=== PATIENT | female | born 1955 | race Caucasian/White ===

== ENCOUNTER 2018-11-09 12:50 | Emergency (ER) | payer OTHER ==
[2018-11-09] MEDS ORDERED: PSEUDOEPHEDRINE HCL 30 MG TABLET PO ONE (13:31)
[2018-11-09] MEDS ORDERED: GUAIFENESIN 600 MG TABLET.SA PO ONE (13:31)
[2018-11-09] MEDS ORDERED: IBUPROFEN 600 MG TABLET PO ONE (13:31)
[2018-11-09] MEDS ORDERED: LORATADINE 10 MG TABLET PO ONE (13:31)
--- NOTE | 2018-11-09 13:35 | ER Document Report ---
ED ENT - General Chief Complaint: Sore Throat Stated Complaint: SORE THROAT Time Seen by Provider: 11/09/18 13:14 Mode of Arrival: Ambulatory Information source: Patient Notes: 63-year-old female presents to ED for complaint of cough cold congestion sore throat times a week. She states she also has bilateral ear pain is worse on the right. Patient is alert oriented respirations regular and unlabored speaking in full sentences no acute distress. TRAVEL OUTSIDE OF THE [place] IN LAST 30 DAYS: No - HPI Patient complains to provider of: Ear problem, Nose problem, Throat problem, Other Onset: Last week - Cough Onset/Duration: Gradual Quality of pain: Achy, Sharp Severity: Moderate Pain Level: 4 Context: Recent Illness Location of pain: Ears, Nose, Sinus, Throat Associated symptoms: Chills, Ear pain, Runny nose, Sinus pain, Sinus drainage, Sore throat. denies: Fever Similar symptoms previously: Yes Recently seen / treated by doctor: No - Related Data Allergies/Adverse Reactions: Penicillins Allergy (Verified 09/13/14 12:55) Anaphylaxis Past Medical History - General Information source: Patient - Social History Smoking Status: Never Smoker Cigarette use (# per day): No Chew tobacco use (# tins/day): No Smoking Education Provided: No Frequency of alcohol use: None Drug Abuse: None Occupation: Stocking Lives with: Family Family History: Reviewed & Not Pertinent Patient has suicidal ideation: No - Past Medical History Cardiac Medical History: Reports: Hx Hypertension Pulmonary Medical History: Reports: None EENT Medical History: Reports: None Neurological Medical History: Reports: None Endocrine Medical History: Reports: Hx Diabetes Mellitus Type 2 Renal/ Medical History: Reports: None Malignancy Medical History: Reports: None GI Medical History: Reports: None Musculoskeletal Medical History: Reports None Skin Medical History: Reports Hx Cellulitis Psychiatric Medical History: Reports: None Traumatic Medical History: Reports: None Infectious Medical History: Reports: None Past Surgical History: Reports: Hx Genitourinary Surgery - bladder tack, Hx Oral Surgery - Immunizations Hx Diphtheria, Pertussis, Tetanus Vaccination: Yes Physical Exam - Vital signs Vitals: Temp Pulse Resp BP Pulse Ox 98.5 F 82 16 121/62 99 11/09/18 13:01 11/09/18 13:01 11/09/18 13:01 11/09/18 13:01 11/09/18 13:01 Interpretation: Normal - General General appearance: Appears well, Alert - HEENT Head: Normocephalic, Atraumatic Eyes: Normal Pupils: PERRL Ears: Normal External canal: Normal Tympanic membrane: Normal Sinus: Normal Nasal: Swelling, Clear rhinorrhea Mouth/Lips: Normal Mucous membranes: Normal Pharynx: Post nasal drainage. No: Erythema, Exudate, Tonsillar hypertrophy Neck: Normal - Respiratory Respiratory status: No respiratory distress Chest status: Nontender Breath sounds: Nonproductive cough Chest palpation: Normal - Cardiovascular Rhythm: Regular Heart sounds: Normal auscultation Murmur: No - Abdominal Inspection: Normal Distension: No distension Bowel sounds: Normal Tenderness: Nontender Organomegaly: No organomegaly - Back Back: Normal, Nontender - Extremities General upper extremity: Normal inspection, Nontender, Normal color, Normal ROM, Normal temperature General lower extremity: Normal inspection, Nontender, Normal color, Normal ROM, Normal temperature, Normal weight bearing. No: Ledy's sign - Neurological Neuro grossly intact: Yes Cognition: Normal Orientation: AAOx4 Elyse Coma Scale Eye Opening: Spontaneous [place] Coma Scale Verbal: Oriented Elyse Coma Scale Motor: Obeys Commands Elyse Coma Scale Total: 15 Speech: Normal Motor strength normal: LUE, RUE, LLE, RLE Sensory: Normal - Psychological Associated symptoms: Normal affect, Normal mood - Skin Skin Temperature: Warm Skin Moisture: Dry Skin Color: Normal Course - Re-evaluation Re-evalutation: 11/09/18 20:43 Assessment consistent with an upper respiratory infection with sore throat. Lungs were clear respirations regular and unlabored strep test was negative. Patient was instructed that if the throat culture comes back positive she will have antibiotics called into her pharmacy. After performing a Medical Screening Examination, I estimate there is LOW risk for ACUTE CORONARY SYNDROME, RESPIRATORY FAILURE, SEPSIS OR MENINGITIS, thus I consider the discharge disposition reasonable. I have reevaluated this patient multiple times and no significant life threatening changes are noted. The patient and I have discussed the diagnosis and risks, and we agree with discharging home with close follow- up. We also discussed returning to the Emergency Department immediately if new or worsening symptoms occur. We have discussed the symptoms which are most concerning (e.g., changing or worsening pain, trouble swallowing or breathing, neck stiffness, fever) that necessitate immediate return. - Vital Signs Vital signs: Temp Pulse Resp BP Pulse Ox 98.3 F 85 16 108/63 99 11/09/18 15:20 11/09/18 15:20 11/09/18 15:20 11/09/18 15:20 11/09/18 15:20 Discharge - Discharge Clinical Impression: Viral sore throat Upper respiratory infection Qualifiers: URI type: unspecified URI Qualified Code(s): J06.9 - Acute upper respiratory infection, unspecified Disposition: HOME, SELF-CARE Additional Instructions: UPPER RESPIRATORY ILLNESS: You have a viral infection of the respiratory passages -- a "cold." This common infection causes nasal congestion, drainage, and often sore throat and cough. It is highly contagious. The disease usually lasts about 10 to 14 days. There is no "cure" for the viral infection -- it must run its course. If there is a complication, such as bacterial infection in the nose, sinuses, middle ear, or bronchial tubes, antibiotics may be required. The antibiotics won't affect the virus. Drink plenty of fluids. A humidifier may help. An expectorant medication or decongestant may make you more comfortable. Use acetaminophen or ibuprofen for fever or aches. See the doctor if fever persists over two days, if there is any significant worsening of your symptoms, or if you simply fail to improve as expected. COUGH-SUPPRESSANT & EXPECTORANT MEDICATION: You are to use a cough medication as needed for relief of symptoms. This medicine is a combination of an expectorant (to make the mucous thinner and more easily "coughed up") and a cough suppressant (to reduce the frequency of coughing). The cough-suppressant medicine is related to narcotics. You may experience mild nausea and sleepiness. Some patients who are very sensitive to narcotics may have stomach pain from this medicine. Taking the medicine with food reduces these side effects. Do not drive or work with machinery until you know how this medicine affects you. The expectorant should have no side effects. Iodine-containing expectorants (such as organidin) should not be taken by persons with active thyroid disease unless approved by your doctor. Call the doctor if you develop shortness of breath, hives, rash, itching, lightheadedness, or severe nausea and vomiting. USE OF ACETAMINOPHEN (Tylenol): Acetaminophen may be taken for pain relief or fever control. It's much safer than aspirin, offering a wider range of "safe" dosages. It is safe during . Some brand names are Tylenol, Panadol, Datril, Anacin 3, Tempra, and Liquiprin. Acetaminophen can be repeated every four hours. The following are maximum recommended dosages: >89 pounds or adults 650 mg to 900 mg Acetaminophen can be repeated every four hours. Maximum dose not to exceed 4000 mg a day. You were treated with Claritin 10 mg, Sudafed 30 mg, and Mucinex for your cough cold and congestion. Your strep test was negative. Your blood pressure was normal today and you had not told me you had a history of high blood pressure. There is a history of blood pressure in the chart if you do have high blood pr essure you are better to take Coricidin HB for your cough and cold symptoms if you do not have a history of high blood pressure then you can take the medication I gave you. Also Flonase would help with your nasal congestion. Chloraseptic spray would help with the sore throat and salt and soda solution gargles will also help with the sore throat. My salt and soda solution 1 quart of water 1 tablespoon of salt 1 teaspoon of baking soda Mixed 3 ingredients together and boil for 1 minute Placed in a covered quart jar Use 1/2 ounce of cold solution to gargle 3 times a day FOLLOW-UP CARE: If you have been referred to a physician for follow-up care, call the physicians office for an appointment as you were instructed or within the next two days. If you experience worsening or a significant change in your symptoms, notify the physician immediately or return to the Emergency Department at any time for re-evaluation. Referrals: LORRIE MORIN DO [Primary Care Provider] - Follow up in 3-5 days
[2018-11-09 15:22] VITALS: BP 108/63
== END 2018-11-09 15:32 | disposition home or self-care (01) ==
LOC: ER 12:50
DX: J02.9 Acute pharyngitis, unspecified (principal); J06.9 Acute upper respiratory infection, unspecified; I10 Essential (primary) hypertension; E11.9 Type 2 diabetes mellitus without complications; Z88.0 Allergy status to penicillin
CPT/HCPCS: 87070; 87880; 99283

== ENCOUNTER → 2018-11-28 | Outpatient (CLI) | payer OTHER | LOC: WI 08:01 | PROVIDERS: ATTEND Family Medicine | DX: Z12.31 Encounter for screening mammogram for malignant neoplasm of breast (principal); Z53.8 Procedure and treatment not carried out for other reasons ==

== ENCOUNTER → 2018-12-16 | Outpatient (CLI) | payer OTHER ==
--- NOTE | 2018-12-17 12:38 | WOMENS IMAGING REPORT ---
EXAM DESCRIPTION: BILAT DIAGNOSTIC MAMMO W/CAD; U/S BREAST UNILAT LIMITED COMPLETED DATE/TIME: 12/16/2018 8:55 am; 12/16/2018 9:50 am; 12/16/2018 9:51 am REASON FOR STUDY: N64.4 MASTODYNIA; RT BREAST PAIN; LEFT BREAST PAIN N64.4 MASTODYNIA COMPARISON: 2012, 2015 TECHNIQUE: Standard craniocaudal and mediolateral oblique views of each breast recorded using digita l acquisition. Additional true lateral views of each breast. LIMITATIONS: None. FINDINGS: RIGHT BREAST MASSES: No suspicious masses. CALCIFICATIONS: No new or suspicious calcifications. ARCHITECTURAL DISTORTION: None. DEVELOPING DENSITY: None. ASYMMETRY: None noted. OTHER: No other significant findings. LEFT BREAST MASSES: No suspicious masses. CALCIFICATIONS: No new or suspicious calcifications. ARCHITECTURAL DISTORTION: None. DEVELOPING DENSITY: None. ASYMMETRY: None noted. OTHER: No other significant finding. Read with the assistance of CAD: .[place] - R2 Cenova Version 1.3 .[facility] - R2 Cenova Version 2.1 .[facility] - R2 Cenova Version 2.4 .[facility] Cenova Version 2.4 .[facility] - R2 Assembler Chassis Version 9.2 BREAST ULTRASOUND: TECHNIQUE: Static and dynamic grayscale images acquired of the right and left breast in the specific areas of clinical/mammographic concern. Selected color Doppler images recorded. ELASTOGRAPHY PERFORMED: No. LIMITATIONS: None. FINDINGS: MASS: No mass identified. Normal glandular tissue. ELASTOGRAPHY CHARACTERISTICS: Not applicable. OTHER: No other significant finding. IMPRESSION: Negative mammography and ultrasound BREAST DENSITY: b. There are scattered areas of fibroglandular density. BIRAD: 1 Negative. RECOMMENDATION: RECOMMENDED FOLLOW UP: Birads 1 or 2: No breast imaging finding to explain the patie nt's presenting complaint. Further intervention should be based on the degree of clinical suspicion. SPECIFIC INTERVENTION/IMAGING/CONSULTATION RECOMMENDED:No additional intervention/ imaging/consultati on needed at this time. COMMUNICATION:The negative/benign results were communicated to the patient. COMMENT: The patient has been notified of the results by letter per SA requirements. Additional no tification policies are in place for contacting patient with suspicious or incomplete findings. Quality ID #225: The [employer] recommends an annual screening mammogram for women aged 40 years or over. This facility utilizes a reminder system to ensure that all patients receive reminder letters, and/or direct phone calls for appointments. This includes reminders for routine scr eening mammograms, diagnostic mammograms, or other Breast Imaging Interventions when appropriate. Th is patient will be placed in the appropriate reminder system. The [employer] (ACR) has developed recommendations for screening MRI of the breast s in certain patient populations, to be used in conjunction with mammography. Breast MRI surveillanc e may be appropriate for women with more than 20% lifetime risk of developing breast cancer as deter mined by genetic testing, significant family history of the disease, or history of mantle radiation f or Hodgkins Disease. ACR Practice Guidelines 2008. TECHNICAL DOCUMENTATION: FINDING NUMBER: (1) ASSESSMENT: (1) JOB ID: [id number] [employer]- All Rights Reserved Reading location - IP/workstation name: [email or web address]
--- NOTE | 2018-12-17 12:38 | WOMENS IMAGING REPORT ---
EXAM DESCRIPTION: BILAT DIAGNOSTIC MAMMO W/CAD; U/S BREAST UNILAT LIMITED COMPLETED DATE/TIME: 12/16/2018 8:55 am; 12/16/2018 9:50 am; 12/16/2018 9:51 am REASON FOR STUDY: N64.4 MASTODYNIA; RT BREAST PAIN; LEFT BREAST PAIN N64.4 MASTODYNIA COMPARISON: 2012, 2015 TECHNIQUE: Standard craniocaudal and mediolateral oblique views of each breast recorded using digita l acquisition. Additional true lateral views of each breast. LIMITATIONS: None. FINDINGS: RIGHT BREAST MASSES: No suspicious masses. CALCIFICATIONS: No new or suspicious calcifications. ARCHITECTURAL DISTORTION: None. DEVELOPING DENSITY: None. ASYMMETRY: None noted. OTHER: No other significant findings. LEFT BREAST MASSES: No suspicious masses. CALCIFICATIONS: No new or suspicious calcifications. ARCHITECTURAL DISTORTION: None. DEVELOPING DENSITY: None. ASYMMETRY: None noted. OTHER: No other significant finding. Read with the assistance of CAD: .[facility] - R2 Cenova Version 1.3 .[facility] Imaging - R2 Cenova Version 2.1 .[facility] - R2 Cenova Version 2.4 .[facility] - R2 Cenova Version 2.4 .[facility] - R2 Wire Temperer Version 9.2 BREAST ULTRASOUND: TECHNIQUE: Static and dynamic grayscale images acquired of the right and left breast in the specific areas of clinical/mammographic concern. Selected color Doppler images recorded. ELASTOGRAPHY PERFORMED: No. LIMITATIONS: None. FINDINGS: MASS: No mass identified. Normal glandular tissue. ELASTOGRAPHY CHARACTERISTICS: Not applicable. OTHER: No other significant finding. IMPRESSION: Negative mammography and ultrasound BREAST DENSITY: b. There are scattered areas of fibroglandular density. BIRAD: 1 Negative. RECOMMENDATION: RECOMMENDED FOLLOW UP: Birads 1 or 2: No breast imaging finding to explain the patie nt's presenting complaint. Further intervention should be based on the degree of clinical suspicion. SPECIFIC INTERVENTION/IMAGING/CONSULTATION RECOMMENDED:No additional intervention/ imaging/consultati on needed at this time. COMMUNICATION:The negative/benign results were communicated to the patient. COMMENT: The patient has been notified of the results by letter per SA requirements. Additional no tification policies are in place for contacting patient with suspicious or incomplete findings. Quality ID #225: The [employer] recommends an annual screening mammogram for women aged 40 years or over. This facility utilizes a reminder system to ensure that all patients receive reminder letters, and/or direct phone calls for appointments. This includes reminders for routine scr eening mammograms, diagnostic mammograms, or other Breast Imaging Interventions when appropriate. Th is patient will be placed in the appropriate reminder system. The [employer] (ACR) has developed recommendations for screening MRI of the breast s in certain patient populations, to be used in conjunction with mammography. Breast MRI surveillanc e may be appropriate for women with more than 20% lifetime risk of developing breast cancer as deter mined by genetic testing, significant family history of the disease, or history of mantle radiation f or Hodgkins Disease. ACR Practice Guidelines 2008. TECHNICAL DOCUMENTATION: FINDING NUMBER: (1) ASSESSMENT: (1) JOB ID: [id number] [employer]- All Rights Reserved Reading location - IP/workstation name: [email or web address]
--- NOTE | 2018-12-17 12:38 | WOMENS IMAGING REPORT ---
EXAM DESCRIPTION: BILAT DIAGNOSTIC MAMMO W/CAD; U/S BREAST UNILAT LIMITED COMPLETED DATE/TIME: 12/16/2018 8:55 am; 12/16/2018 9:50 am; 12/16/2018 9:51 am REASON FOR STUDY: N64.4 MASTODYNIA; RT BREAST PAIN; LEFT BREAST PAIN N64.4 MASTODYNIA COMPARISON: 2012, 2015 TECHNIQUE: Standard craniocaudal and mediolateral oblique views of each breast recorded using digita l acquisition. Additional true lateral views of each breast. LIMITATIONS: None. FINDINGS: RIGHT BREAST MASSES: No suspicious masses. CALCIFICATIONS: No new or suspicious calcifications. ARCHITECTURAL DISTORTION: None. DEVELOPING DENSITY: None. ASYMMETRY: None noted. OTHER: No other significant findings. LEFT BREAST MASSES: No suspicious masses. CALCIFICATIONS: No new or suspicious calcifications. ARCHITECTURAL DISTORTION: None. DEVELOPING DENSITY: None. ASYMMETRY: None noted. OTHER: No other significant finding. Read with the assistance of CAD: .[facility] - R2 Cenova Version 1.3 .[facility] Imaging - R2 Cenova Version 2.1 .[facility] Imaging - R2 Cenova Version 2.4 [place] [place]ova Version 2.4 .[facility] - R2 Six Pack Packer Version 9.2 BREAST ULTRASOUND: TECHNIQUE: Static and dynamic grayscale images acquired of the right and left breast in the specific areas of clinical/mammographic concern. Selected color Doppler images recorded. ELASTOGRAPHY PERFORMED: No. LIMITATIONS: None. FINDINGS: MASS: No mass identified. Normal glandular tissue. ELASTOGRAPHY CHARACTERISTICS: Not applicable. OTHER: No other significant finding. IMPRESSION: Negative mammography and ultrasound BREAST DENSITY: b. There are scattered areas of fibroglandular density. BIRAD: 1 Negative. RECOMMENDATION: RECOMMENDED FOLLOW UP: Birads 1 or 2: No breast imaging finding to explain the patie nt's presenting complaint. Further intervention should be based on the degree of clinical suspicion. SPECIFIC INTERVENTION/IMAGING/CONSULTATION RECOMMENDED:No additional intervention/ imaging/consultati on needed at this time. COMMUNICATION:The negative/benign results were communicated to the patient. COMMENT: The patient has been notified of the results by letter per SA requirements. Additional no tification policies are in place for contacting patient with suspicious or incomplete findings. Quality ID #225: The [employer] recommends an annual screening mammogram for women aged 40 years or over. This facility utilizes a reminder system to ensure that all patients receive reminder letters, and/or direct phone calls for appointments. This includes reminders for routine scr eening mammograms, diagnostic mammograms, or other Breast Imaging Interventions when appropriate. Th is patient will be placed in the appropriate reminder system. The [employer] (ACR) has developed recommendations for screening MRI of the breast s in certain patient populations, to be used in conjunction with mammography. Breast MRI surveillanc e may be appropriate for women with more than 20% lifetime risk of developing breast cancer as deter mined by genetic testing, significant family history of the disease, or history of mantle radiation f or Hodgkins Disease. ACR Practice Guidelines 2008. TECHNICAL DOCUMENTATION: FINDING NUMBER: (1) ASSESSMENT: (1) JOB ID: [id number] [email or web address]- All Rights Reserved Reading location - IP/workstation name: [email or web address]
== END ==
LOC: WI 08:18
PROVIDERS: ATTEND Family Medicine
DX: N64.4 Mastodynia (principal)
CPT/HCPCS: 76642; 77066

== ENCOUNTER 2020-06-17 12:09 | Emergency (ER) | payer OTHER ==
[2020-06-17 12:16] VITALS: BP 130/71
[2020-06-17] MEDS ORDERED: KETOROLAC TROMETHAMINE 60 MG/2 ML SDV IM ONE (13:12)
[2020-06-17] MEDS ORDERED: METHOCARBAMOL 750 MG TABLET PO ONE (13:13)
--- NOTE | 2020-06-17 13:17 | ER Document Report ---
HPI - HPI Time Seen by Provider: 06/17/20 13:07 Context: Patient is a 65-year-old female who presents the emergency department with a chief complaint of left arm pain. Patient states that her pain goes from her left shoulder down her left arm. She went to go lift a box and she ended up having a sharp shooting pain that radiated from her shoulder down to her arm. Patient is on gabapentin for neuropathy. She also has a history of diabetes. Denies any injury or hitting her arm on anything. - ROS Systems Reviewed and Negative: Yes All other systems reviewed and negative - CONSTITUTIONAL Constitutional: DENIES: Fever, Chills - RESPIRATORY Respiratory: DENIES: Trouble Breathing, Coughing - GASTROINTESTINAL Gastrointestinal: DENIES: Abdominal Pain - MUSCULOSKELETAL Musculoskeletal: REPORTS: Extremity pain - Left upper ext., Back Pain - left upper back. DENIES: Swelling - DERM Skin Color: Normal Skin Problems: None Past Medical History - General Information source: Patient - Social History Smoking Status: Never Smoker Family History: Reviewed & Not Pertinent - Past Medical History Cardiac Medical History: Reports: Hx Hypertension Endocrine Medical History: Reports: Hx Diabetes Mellitus Type 2 Renal/ Medical History: Denies: Hx Peritoneal Dialysis Skin Medical History: Reports Hx Cellulitis Past Surgical History: Reports: Hx Genitourinary Surgery - bladder tack, Hx Oral Surgery - Immunizations Hx Diphtheria, Pertussis, Tetanus Vaccination: Yes Vertical Provider Document - CONSTITUTIONAL Agree With Documented VS: Yes Exam Limitations: No Limitations General Appearance: No Apparent Distress - INFECTION CONTROL TRAVEL OUTSIDE OF THE [place] IN LAST 30 DAYS: No - HEENT HEENT: Atraumatic, Normocephalic, PERRLA - RESPIRATORY Respiratory: No Respiratory Distress - CARDIOVASCULAR Cardiovascular: Regular Rate, Regular Rhythm Pulses: Normal: Radial, Carotid - MUSCULOSKELETAL/EXTREMETIES Musculoskeletal/Extremeties: Tender - left upper shoulder. negative: FROM - Decreased to left arm due to pain. - NEURO Level of Consciousness: Awake, Alert, Appropriate Motor/Sensory: No Motor Deficit, No Sensory Deficit - DERM Integumentary: Warm, Dry, No Rash Course - Re-evaluation Re-evalutation: 06/17/20 13:24 Physical exam is consistent with muscle tension with radiculopathy down left arm. Patient is to be placed in a sling. She will be started on Robaxin. She will follow-up with her primary care provider. Follow-up precautions were given. Verbal discharge instructions were given to the patient. They verbalized understanding. They are stable for discharge. - Vital Signs Vital signs: Temp Pulse Resp BP Pulse Ox 98.6 F 92 18 130/71 H 96 06/17/20 12:16 06/17/20 12:16 06/17/20 12:16 06/17/20 12:16 06/17/20 12:16 Procedures - Immobilization Left Arm Immobilizer type: Sling Performed by: Other - [employer]DER Post-Proc Neuro Vasc Exam: Normal, Unchanged from pre-exam Alignment checked and good: Yes Discharge - Discharge Clinical Impression: Left arm pain Condition: Stable Disposition: HOME, SELF-CARE Instructions: Sling as Treatment (OM) Additional Instructions: You were seen today in the emergency department for left arm pain. Your pain is consistent with muscle tension in your left shoulder that radiates down to your left arm. Take the muscle relaxers as needed to help you with your pain. In about 8 hours you can take 600 mg of ibuprofen and thousand grams of Tylenol every 6 hours for your pain. Follow-up with your primary care provider in regards to this visit. Prescriptions: Methocarbamol [Robaxin 750 mg Tablet] 750 mg PO BID #10 tablet Referrals: LORRIE MORIN DO [Primary Care Provider] - Follow up in 3-5 days
== END 2020-06-17 13:29 | disposition home or self-care (01) ==
LOC: ER 12:09
DX: M79.602 Pain in left arm (principal); E11.9 Type 2 diabetes mellitus without complications; I10 Essential (primary) hypertension
CPT/HCPCS: 99283; 96372; J1885; J3490

== ENCOUNTER → 2020-06-21 | Outpatient (CLI) | payer OTHER ==
--- NOTE | 2020-06-21 15:02 | RADIOLOGY REPORT (SQ) ---
EXAM DESCRIPTION: C SP 4 OR 5 VIEWS IMAGES COMPLETED DATE/TIME: 06/21/2020 2:19 pm REASON FOR STUDY: RADICULOPATHY, CERVICAL REGION M54.12 RADICULOPATHY, CERVICAL REGION M25.512 ТАТЬЯНА N IN LEFT SHOULDER COMPARISON: None. NUMBER OF VIEWS: Five views. TECHNIQUE: AP, lateral, obliques and odontoid radiographic images acquired of the cervical spine. LIMITATIONS: None. FINDINGS: MINERALIZATION: Normal. ALIGNMENT: Slight reversal of cervical lordosis centered at C4-C5 maybe related muscle spasm. VERTEBRAE: Vertebral bodies of normal height. DISCS: Mild disc space narrowing at C5-C6 and C6-C7 with anterior osteophytes. FORAMINA: Examination is limited on the left due to patient positioning. Mild bilateral foraminal n arrowing C5-C6 and C6-C7 with small posterior osteophytes encroaching on the foramina. LATERAL AND POSTERIOR ELEMENTS: Facets, lateral masses and spinous processes without significant find ings. HARDWARE: None in the spine. SOFT TISSUES: No masses or calcifications. Lung apices clear. OTHER: No other significant finding. IMPRESSION: 1. Slight reversal of cervical lordosis centered at C4-C5 maybe related to muscle spasm . 2. As on the prior examination dated 12/29/2013, degenerative cervical spondylosis and disc disease a t C5-C6 and C6-C7. TECHNICAL DOCUMENTATION: JOB ID: [id number] 2010 [employer]- All Rights Reserved Reading location - IP/workstation name: [email or web address]
--- NOTE | 2020-06-21 15:08 | RADIOLOGY REPORT (SQ) ---
EXAM DESCRIPTION: SHOULDER LEFT 2 OR MORE VIEWS IMAGES COMPLETED DATE/TIME: 06/21/2020 2:19 pm REASON FOR STUDY: PAIN IN LEFT SHOULDER M54.12 RADICULOPATHY, CERVICAL REGION M25.512 PAIN IN LEFT SHOULDER COMPARISON: None. NUMBER OF VIEWS: Three views. TECHNIQUE: Internal rotation, external rotation, and Y view images acquired of the left shoulder. LIMITATIONS: None. FINDINGS: MINERALIZATION: Normal. BONES: No acute fracture. No worrisome bone lesions. JOINTS: No dislocation. VISUALIZED LUNGS AND RIBS: No pneumothorax. No rib fracture. SOFT TISSUES: No radiopaque foreign body. OTHER: No other significant finding. IMPRESSION: 1. No acute osseous findings. TECHNICAL DOCUMENTATION: JOB ID: [id number] 2010 [email or web address]- All Rights Reserved Reading location - IP/workstation name: [email or web address]
== END ==
LOC: OD 13:58
PROVIDERS: ATTEND Family Medicine
DX: M54.12 Radiculopathy, cervical region (principal); M25.512 Pain in left shoulder
CPT/HCPCS: 72050

== ENCOUNTER → 2020-09-22 | Outpatient (CLI) | payer OTHER ==
[2020-09-22 09:39] LABS: ABSOLUTE EOSINOPHILS # (AUTO) 0.1 10^3/uL (0.0-0.6); ABSOLUTE LYMPHOCYTES (AUTO) 1.8 10^3/uL (0.5-4.7); ABSOLUTE MONOCYTES (AUTO) 0.5 10^3/uL (0.1-1.4); ABSOLUTE NEUT (AUTO) 3.6 10^3/uL (1.7-8.2); BASOPHILS % (AUTO) 0.8 % (0-2); EOSINOPHILS % (AUTO) 2.3 % (0-6); HEMATOCRIT 40.7 % (36.0-47.0); HEMOGLOBIN 13.7 g/dL (12.0-15.5); LYMPHOCYTES % (AUTO) 30.5 % (13-45); MEAN CORPUSCULAR HGB CONC 33.7 g/dL (32.0-36.0); MEAN CORPUSCULAR VOLUME 83 fl (80-97); MONOCYTES % (AUTO) 7.5 % (3-13); PLATELET COUNT 225 10^3/uL (150-450); RED CELL DISTRIBUTION WIDTH 12.8 % (11.5-14.0); SEGMENTED NEUTROPHILS % (AUTO) 58.9 % (42-78); TOTAL CELLS COUNTED % (AUTO) 100 %
[2020-09-22 09:56] LABS: ANION GAP 11 (5-19); BLOOD UREA NITROGEN 14 mg/dL (7-20); CALCIUM 9.6 mg/dL (8.4-10.2); CARBON DIOXIDE 24 mmol/L (22-30); CHLORIDE 100 mmol/L (98-107); GLUCOSE 350 mg/dL (75-110); POTASSIUM 4.5 mmol/L (3.6-5.0)
--- NOTE | 2020-09-23 00:35 | EKG REPORT ---
SEVERITY:- ABNORMAL ECG - SINUS RHYTHM NONSPECIFIC INTRAVENTRICULAR CONDUCTION DELAY PROBABLE INFERIOR INFARCT, AGE INDETERMINATE : Confirmed by: Fazal Olivera 23-Sep-2020 00:35:22
--- OUTSIDE RECORDS SUMMARY | 2020-09-23 15:03 | XMS REPORT ---
:1955 [facility] [address] [place] [address] Care Team Providers Name Role Phone Yahir Reyes Attending Clinician Unavailable Yahir Reyes Attending Clinician Unavailable Francesca Campuzano Attending Clinician Unavailable Allergies, Adverse Reactions, Alerts Allergy Name Allergy Status Severity Reaction(s) Onset Inactive Treat ing Comments Type Date Date Clinician Penicillins Allergy to Active Hives substance Medications Ordered Filled Start Stop Current Ordering Indication Dosage Frequency Signature Comments Components Medication Medication Date Date Medication? Clinician (SIG) Name Name Gadsden 5 No 1 Q5H Gadsden 5 mg-325 mg mg-325 mg tablet Take tablet 1 tablet Take 1 every 4-6 tablet hours by every 4-6 oral route hours by as oral route directed. as after directed. surgery after surgery Bydureon 2 No Bydureon 2 mg/0.65 mL mg/0.65 mL subcutaneou subcutaneo s pen us pen injector injector Inject by Inject by sub-q route sub-q for 90 route for days. 90 days. gabapentin No 1 TID gabapentin 600 mg 600 mg tablet Take tablet 1 tablet 3 Take 1 times a day tablet 3 by oral times a route for day by 90 days. oral route for 90 days. Lantus No Lantus Solostar Solostar U-100 U-100 Insulin 100 Insulin unit/mL (3 100 mL) unit/mL (3 subcutaneou mL) s pen subcutaneo Inject by us pen sub-q route Inject by for 50 sub-q days. route for 50 days. lisinopril No 1 Q1D lisinopril 40 mg 40 mg tablet Take tablet 1 tablet Take 1 every day tablet by oral every day route for by oral 90 days. route for 90 days. meloxicam No 1 Q1D meloxicam 15 mg 15 mg tablet Take tablet 1 tablet Take 1 every day tablet by oral every day route for by oral 90 days. route for 90 days. metformin No 1 BID metformin 1,000 mg 1,000 mg tablet Take tablet 1 tablet Take 1 twice a day tablet by oral twice a route for day by 90 days. oral route for 90 days. methocarbam No methocarba ol 750 mg mol 750 mg tablet Take tablet by oral Take by route for oral route 30 days. for 30 days. celecoxib No celecoxib 200 mg 200 mg capsule capsule aspirin,buf No 1 BID aspirin,bu fered ffered (calcium (calcium carbonate-m carbonate- agnesium) magnesium) 325 mg 325 mg tablet Take tablet 1 tablet Take 1 twice a day tablet by oral twice a route for day by 30 days. oral route after for 30 surgery days. after surgery Colace 100 No Colace 100 mg capsule mg capsule Take 1 Take 1 capsule(s) capsule(s) 3 x per day 3 x per by oral day by route as oral route needed for as needed constipatio for n from pain constipati medicine on from after pain surgery medicine after surgery Problems Condition Condition Condition Status Onset Resolution Last Treatin g Comments Name Details Category Date Date Treatment Clinician Date Joint Joint Problem Active 2019-11 stiffness Stiffness 0-02 00:00: 00 Muscle Muscle Problem Active 2019-11 weakness Weakness 0-02 00:00: 00 Abnormal Abnormal Problem Active 2019-11 posture Posture 0-02 00:00: 00 Full Full Problem Active thickness Thickness 9 rotator Rotator 00:00: cuff tear Cuff Tear 00 Diabetes Diabetes Problem Active mellitus Mellitus 08-03 00:00: 00 Hypertensiv Hypertensiv Problem Active e disorder e Disorder 08-03 00:00: 00 Procedures Procedure Date / Time Performed Performing Clinician Devic e RADIOLOGIC EXAM SHOULDER 2 VIEWS 2020-08-03 00:00:00 OFFICE/OUTPATIENT VISIT EST 2020-06-21 13:00:00 DSCHRG MED/CURRENT MED MERGE 2020-06-21 13:00:00 OFFICE/OUTPATIENT VISIT EST 2019-12-31 13:30:00 OFFICE/OUTPATIENT VISIT EST 2018-12-19 08:00:00 OFFICE/OUTPATIENT VISIT EST 2018-11-20 13:15:00 OFFICE/OUTPATIENT VISIT EST 2018-10-16 15:00:00 OFFICE/OUTPATIENT VISIT EST 2017-12-23 08:45:00 OFFICE/OUTPATIENT VISIT EST 2017-10-09 08:30:00 OFFICE/OUTPATIENT VISIT EST 2017-10-02 09:15:00 OFFICE/OUTPATIENT VISIT EST 2017-06-14 08:00:00 OFFICE/OUTPATIENT VISIT EST 2017-03-22 08:15:00 Procedure on Uterus Results Test Description Test Time Test Comments Text Results Atomic Results Result Comments Hemoglobin A1C\S\ 2020-06-21 13:00:00 Test Item Value Reference Range Comments HgbA1C, Fingerstick (test code = 4548-4) 12.6 % 4-5.6 LIPID PANEL WITH REFLEX TO DIRECT [id number] 14:58:00 Test Item Value Reference Range Comments NON HDL CHOLESTEROL (test code = 59772024) 208 mg/dL (calc) <130 CHOLESTEROL, TOTAL (test code = 91280427) 254 mg/dL <200 LDL-CHOLESTEROL (test code = 82846228) 177 mg/dL (calc) TRIGLYCERIDES (test code = 09203493) 159 mg/dL <150 HDL CHOLESTEROL (test code = 61573678) 46 mg/dL > OR = 50 CHOL/HDLC RATIO (test code = 59189474) 5.5 (calc) <5.0 [id number] 14:58:000.91CBC (INCLUDES DIFF/PLT)2019-12-31 14:58:00 Test Item Value Reference Range Comments WHITE BLOOD CELL COUNT (test code = 6.0 Thousand/uL 3.8-10.8 88445326) MCH (test code = 53052958) 27.9 pg 27.0-33.0 ABSOLUTE EOSINOPHILS (test code = 69050031) 102 cells/uL 15-5 00 LYMPHOCYTES (test code = 63314385) 36.8 % MCV (test code = 84739979) 83.0 fL 80.0-100.0 MPV (test code = 58321429) 10.9 fL 7.5-12.5 ABSOLUTE LYMPHOCYTES (test code = 10953435) 2208 cells/uL 850- 3900 PLATELET COUNT (test code = 62675971) 298 Thousand/uL 140-400 MCHC (test code = 57814679) 33.6 g/dL 32.0-36.0 ABSOLUTE MONOCYTES (test code = 30395572) 456 cells/uL 200-95 0 HEMATOCRIT (test code = 93869011) 40.5 % 35.0-45.0 RDW (test code = 90428356) 12.5 % 11.0-15.0 ABSOLUTE NEUTROPHILS (test code = 01432508) 3192 cells/uL 1500 -7800 BASOPHILS (test code = 61447946) 0.7 % NEUTROPHILS (test code = 41795977) 53.2 % HEMOGLOBIN (test code = 92615811) 13.6 g/dL 11.7-15.5 MONOCYTES (test code = 72028681) 7.6 % EOSINOPHILS (test code = 95260898) 1.7 % ABSOLUTE BASOPHILS (test code = 96806351) 42 cells/uL 0-200 RED BLOOD CELL COUNT (test code = 40774505) 4.88 Million/uL 3.80 -5.10 ALBUMIN, RANDOM URINE [id number] 14:58:00 Test Item Value Reference Range Comments ALBUMIN, URINE (test code = 90343597) 0.7 mg/dL CREATININE, RANDOM URINE (test code = 53 mg/dL 20-275 30091783) ALBUMIN/CREATININE RATIO, RANDOM URINE (test 13 mcg/mg creat <30 code = 92310356) COMPREHENSIVE METABOLIC [id number] 14:58:00 Test Item Value Reference Range Comments PROTEIN, TOTAL (test code = 46379490) 6.8 g/dL 6.1-8.1 eGFR (test code = 109 mL/min/1.73m2 > OR = 60 93608088) BILIRUBIN, TOTAL (test code = 0.5 mg/dL 0.2-1.2 33315383) CARBON DIOXIDE (test code = 86930717) 24 mmol/L 20-32 SODIUM (test code = 10968343) 139 mmol/L 135-146 AST (test code = 11416409) 19 U/L 10-35 UREA NITROGEN (BUN) (test code = 12 mg/dL 7-25 78207812) ALBUMIN/GLOBULIN RATIO (test code = 2.1 (calc) 1.0-2.5 39701578) POTASSIUM (test code = 71594853) 4.0 mmol/L 3.5-5.3 ALT (test code = 25664181) 19 U/L 6-29 ALBUMIN (test code = 00297550) 4.6 g/dL 3.6-5.1 CHLORIDE (test code = 22226664) 102 mmol/L 98-110 eGFR NON-AFR. KAZAKH (test code = 94 mL/min/1.73m2 > OR = 60 72796420) ALKALINE PHOSPHATASE (test code = 73 U/L 37-153 94581286) GLOBULIN (test code = 33384636) 2.2 g/dL (calc) 1.9-3.7 BUN/CREATININE RATIO (test code = NOT APPLICABLE (calc) 6-22 81136291) CREATININE (test code = 69977362) 0.67 mg/dL 0.50-0.99 CALCIUM (test code = 00701206) 10.0 mg/dL 8.6-10.4 GLUCOSE (test code = 27328305) 259 mg/dL 65-99 Hemoglobin A1C\S\2019-12-31 13:30:00 Test Item Value Reference Range Comments HgbA1C, Fingerstick (test code = 4548-4) 10.5 % 4-5.6 COMPREHENSIVE METABOLIC [id number] 08:39:00 Test Item Value Reference Range Comments BUN/CREATININE RATIO (test code = NOT APPLICABLE (calc) -249977675887) ALBUMIN/GLOBULIN RATIO (test code = 1.9 (calc) 1.0-2.5 60173201) SODIUM (test code = 53422359) 139 mmol/L 135-146 eGFR (test code = 113 mL/min/1.73m2 > OR = 60 41513755) ALT (test code = 48196539) 24 U/L 6-29 POTASSIUM (test code = 69301066) 4.4 mmol/L 3.5-5.3 CHLORIDE (test code = 81781493) 103 mmol/L 98-110 eGFR NON-AFR. KAZAKH (test code = 98 mL/min/1.73m2 > OR = 60 47831226) CARBON DIOXIDE (test code = 49454285) 27 mmol/L 20-32 CREATININE (test code = 25469111) 0.61 mg/dL 0.50-0.99 PROTEIN, TOTAL (test code = 69548115) 6.3 g/dL 6.1-8.1 BILIRUBIN, TOTAL (test code = 0.6 mg/dL 0.2-1.2 08652501) UREA NITROGEN (BUN) (test code = 11 mg/dL 7-25 56887627) GLUCOSE (test code = 01097679) 276 mg/dL 65-99 ALKALINE PHOSPHATASE (test code = 76 U/L 33-130 55842293) ALBUMIN (test code = 96949390) 4.1 g/dL 3.6-5.1 AST (test code = 89235423) 20 U/L 10-35 CALCIUM (test code = 42579753) 9.4 mg/dL 8.6-10.4 GLOBULIN (test code = 70557670) 2.2 g/dL (calc) 1.9-3.7 LIPID PANEL WITH REFLEX TO DIRECT [id number] 08:39:00 Test Item Value Reference Range Comments LDL-CHOLESTEROL (test code = 04314641) 165 mg/dL (calc) CHOL/HDLC RATIO (test code = 46686645) 5.2 (calc) <5.0 TRIGLYCERIDES (test code = 21276145) 125 mg/dL <150 CHOLESTEROL, TOTAL (test code = 56378833) 237 mg/dL <200 NON HDL CHOLESTEROL (test code = 32531092) 191 mg/dL (calc) <130 HDL CHOLESTEROL (test code = 34486700) 46 mg/dL >50 [id number] 08:39:001.38MICROALBUMIN, RANDOM URINE (W/CREATININE)2018-10-17 08:39:00 Test Item Value Reference Range Comments MICROALBUMIN (test code = 61035129) 0.8 mg/dL CREATININE, RANDOM URINE (test code = 69 mg/dL 20-275 86638053) MICROALBUMIN/CREATININE RATIO, RANDOM URINE 12 mcg/mg creat <30 (test code = 39797384) CBC (INCLUDES DIFF/PLT)2018-10-17 08:39:00 Test Item Value Reference Range Comments MPV (test code = 70393225) 10.6 fL 7.5-12.5 HEMATOCRIT (test code = 28813097) 39.5 % 35.0-45.0 WHITE BLOOD CELL COUNT (test code = 5.3 Thousand/uL 3.8-10.8 99704028) MCH (test code = 33219362) 28.3 pg 27.0-33.0 LYMPHOCYTES (test code = 08933860) 28.2 % PLATELET COUNT (test code = 90292118) 293 Thousand/uL 140-400 MCHC (test code = 67563661) 33.9 g/dL 32.0-36.0 ABSOLUTE BASOPHILS (test code = 27400540) 53 cells/uL 0-200 RED BLOOD CELL COUNT (test code = 92817833) 4.73 Million/uL 3.80 -5.10 MCV (test code = 21132783) 83.5 fL 80.0-100.0 BASOPHILS (test code = 78921952) 1.0 % ABSOLUTE NEUTROPHILS (test code = 34165563) 3148 cells/uL 1500 -7800 HEMOGLOBIN (test code = 77440667) 13.4 g/dL 11.7-15.5 EOSINOPHILS (test code = 57529137) 1.9 % RDW (test code = 73133938) 12.7 % 11.0-15.0 ABSOLUTE EOSINOPHILS (test code = 29461202) 101 cells/uL 15-5 00 NEUTROPHILS (test code = 67245922) 59.4 % ABSOLUTE MONOCYTES (test code = 07691049) 504 cells/uL 200-95 0 ABSOLUTE LYMPHOCYTES (test code = 67527820) 1495 cells/uL 850- 3900 MONOCYTES (test code = 60551984) 9.5 % Hemoglobin A1C\S\2018-10-16 15:00:00 Test Item Value Reference Range Comments HgbA1C, Fingerstick (test code = 4548-4) 13.9 % 4-5.6 Microalbumin Creatinine [id number] 09:06:00 Test Item Value Reference Range Comments Creatinine, Urine (test code = 449543) 93 mg/dL 20-320 Microalbumin (test code = 387611) 0.9 mg/dL Not estab Microalbumin/Creatinine Ratio (test code = 10 mcg/mg creat <30 753651) Hemoglobin A1C\S\2017-12-23 08:45:00 Test Item Value Reference Range Comments HgbA1C, Fingerstick (test code = 4548-4) 12.4 % 4-5.6 Lipid [id number] 09:05:00 Test Item Value Reference Range Comments Cholesterol (test code = 637770) 259 mg/dL <200 Triglycerides (test code = 496542) 156 mg/dL <150 HDL Cholesterol (test code = 802056) 40 mg/dL >50 Total Chol/HDL Ratio (test code = 339230) 6.5 Ratio <5.0 VLDL Cholesterol (Calc) (test code = 014008) 31 mg/dL <30 LDL Cholesterol (Calc) (test code = 021034) 188 mg/dL <100 CMP with Estimated [id number] 09:05:00 Test Item Value Reference Range Comments Est GFR, NonAfrican Citizen Of [place] (test code = 983753) >89 mL/min >=60 Sodium (test code = 742405) 136 mmol/L 135-146 Total Protein (test code = 869732) 7.0 g/dL 6.1-8.1 Albumin (test code = 395916) 4.4 g/dL 3.6-5.1 Potassium (test code = 147476) 3.9 mmol/L 3.5-5.3 Bilirubin, Total (test code = 293840) 0.5 mg/dL 0.2-1.2 Glucose (test code = 859367) 232 mg/dL 65-99 CO2 (test code = 261014) 21 mmol/L 20-31 Creatinine (test code = 853198) 0.63 mg/dL 0.50-0.99 ALT/SGPT (test code = 607757) 34 U/L 6-29 Chloride (test code = 257485) 104 mmol/L 98-110 AST/SGOT (test code = 948393) 26 U/L 10-35 BUN (test code = 571906) 15 mg/dL 7-25 Alkaline Phosphatase (test code = 167750) 68 U/L 33-130 Calcium (test code = 599820) 9.4 mg/dL 8.6-10.4 Est GFR, (test code = 868865) >89 mL/min > =60 CBC NO Diff (Complete Blood Count)2017-10-09 09:05:00 Test Item Value Reference Range Comments MCHC (test code = 862839) 33.8 g/dL 32.0-36.0 MCV (test code = 774898) 82.6 fL 80.0-100.0 Platelet Count (test code = 885651) 283 K/uL 140-400 Hematocrit (test code = 894647) 43.2 % 35.0-45.0 Hemoglobin (test code = 246897) 14.6 g/dL 11.7-15.5 WBC (test code = 264946) 6.3 K/uL 3.8-10.8 MCH (test code = 454477) 27.9 pg 27.0-33.0 RDW (test code = 620519) 14.1 % 11.0-15.0 MPV (test code = 671650) 10.2 fL 7.5-12.5 RBC (test code = 740072) 5.23 MIL/uL 3.80-5.10 Hemoglobin A1C\S\2017-10-02 09:15:00 Test Item Value Reference Range Comments HgbA1C, Fingerstick (test code = 4548-4) 11.8 % 4-5.6 CMP with Estimated [id number] 08:46:00 Test Item Value Reference Range Comments Chloride (test code = 779990) 96 mmol/L 98-110 BUN (test code = 018495) 10 mg/dL 7-25 Potassium (test code = 278594) 3.8 mmol/L 3.5-5.3 Total Protein (test code = 795003) 6.5 g/dL 6.1-8.1 ALT/SGPT (test code = 269291) 46 U/L 6-29 Bilirubin, Total (test code = 979430) 0.5 mg/dL 0.2-1.2 Calcium (test code = 311097) 9.3 mg/dL 8.6-10.4 Albumin (test code = 610197) 4.2 g/dL 3.6-5.1 Est GFR, NonAfrican Citizen Of [place] (test code = 305546) >89 mL/min >=60 Glucose (test code = 646036) 378 mg/dL 65-99 Est GFR, (test code = 093938) >89 mL/min > =60 Alkaline Phosphatase (test code = 862151) 74 U/L 33-130 CO2 (test code = 286105) 19 mmol/L 20-31 Sodium (test code = 291513) 129 mmol/L 135-146 Creatinine (test code = 545564) 0.69 mg/dL 0.50-0.99 AST/SGOT (test code = 893555) 32 U/L 10-35 CBC NO Diff (Complete Blood Count)2017-06-14 08:46:00 Test Item Value Reference Range Comments WBC (test code = 034771) 5.6 K/uL 3.8-10.8 MCH (test code = 433762) 28.0 pg 27.0-33.0 Platelet Count (test code = 418629) 258 K/uL 140-400 MPV (test code = 443603) 10.4 fL 7.5-12.5 RBC (test code = 833166) 4.89 MIL/uL 3.80-5.10 Hemoglobin (test code = 709462) 13.7 g/dL 11.7-15.5 Hematocrit (test code = 931919) 41.9 % 35.0-45.0 RDW (test code = 139626) 13.8 % 11.0-15.0 MCV (test code = 100296) 85.7 fL 80.0-100.0 MCHC (test code = 735398) 32.7 g/dL 32.0-36.0 Microalbumin Creatinine [id number] 08:46:00 Test Item Value Reference Range Comments Microalbumin (test code = 000814) 0.3 mg/dL Not estab Microalbumin/Creatinine Ratio (test code = 7 mcg/mg creat <30 102933) Creatinine, Urine (test code = 304747) 43 mg/dL 20-320 Hemoglobin A1C\S\2017-06-14 08:00:00 Test Item Value Reference Range Comments HgbA1C, Fingerstick (test code = 4548-4) 12.8 % 4-5.6 Hemoglobin A1C\S\2017-03-22 08:15:00 Test Item Value Reference Range Comments HgbA1C, Fingerstick (test code = 4548-4) 11.9 % 4-5.6 Pap Test (Performed Elsewhere)\S\2017-02-05 08:54:00 Test Item Value Reference Range Comments Pap Test (Performed Elsewhere) (test code = 41299-0) Normal Hemoglobin A1C\S\2016-12-24 09:00:00 Test Item Value Reference Range Comments HgbA1C, Fingerstick (test code = 4548-4) 12.7 % 4-5.6 [id number] 09:40:00 Test Item Value Reference Range Comments TSH (test code = 152907) 2.033 uIU/mL 0.350-4.500 CBC with [id number] 09:40:00 Test Item Value Reference Range Comments Hemoglobin (test code = 311826) 14.3 g/dL 12.0-15.0 Eos % (test code = 850105) 2 % 0-5 MCV (test code = 238400) 82.9 fL 78.0-100.0 [place] % (test code = 230284) 10 % 3-12 RDW (test code = 525805) 14.0 % 11.5-15.5 Absolute Gran (test code = 2.9 K/uL 1.7-7.7 660675) Smear Review (test code = Criteria for review not met 193071) MCHC (test code = 612088) 33.9 g/dL 30.0-36.0 Lymph % (test code = 710157) 31 % 12-46 Absolute Baso (test code = 0.1 K/uL 0.0-0.1 354297) Platelet Count (test code = 253 K/uL 150-400 481142) Absolute Eos (test code = 0.1 K/uL 0.0-0.7 657054) WBC (test code = 336370) 5.2 K/uL 4.0-10.5 Baso % (test code = 732518) 1 % 0-1 Granulocyte % (test code = 56 % 43-77 718666) RBC (test code = 057761) 5.09 MIL/uL 3.87-5.11 Absolute Lymph (test code = 1.6 K/uL 0.7-4.0 596238) MCH (test code = 423905) 28.1 pg 26.0-34.0 Hematocrit (test code = 219249) 42.2 % 36.0-46.0 MPV (test code = 875511) 10.7 fL 8.6-12.4 Absolute [place] (test code = 0.5 K/uL 0.1-1.0 646120) Hemoglobin A1c with [id number] 09:40:00 Test Item Value Reference Range Comments Estimated Average Glucose (test code = 224040) 361 mg/dL < 117 Hemoglobin A1C (test code = 499563) 14.2 % <5.7 Lyme Ab, IgG, IgM, rflx IB w [id number] 09:40:00 Test Item Value Reference Range Comments B. burgdorferi IgG, IgM Ab (test code = 040689) 0.17 ISR Microalbumin Creatinine [id number] 09:40:00 Test Item Value Reference Range Comments Creatinine, Urine (test code = 476803) 95 mg/dL 20-320 Microalbumin (test code = 796528) 1.5 mg/dL Not estab Microalbumin/Creatinine Ratio (test code = 16 mcg/mg creat <30 346716) CMP with Estimated [id number] 09:40:00 Test Item Value Reference Range Comments Creatinine (test code = 776798) 0.67 mg/dL 0.50-1.05 Est GFR, NonAfrican Citizen Of [place] (test code = 554293) >89 mL/min >=60 CO2 (test code = 986913) 26 mmol/L 20-31 ALT/SGPT (test code = 909054) 63 U/L 6-29 AST/SGOT (test code = 744398) 34 U/L 10-35 BUN (test code = 664870) 12 mg/dL 7-25 Potassium (test code = 975107) 4.3 mmol/L 3.5-5.3 Est GFR, (test code = 562768) >89 mL/min > =60 Calcium (test code = 924944) 9.5 mg/dL 8.6-10.4 Sodium (test code = 239593) 137 mmol/L 135-146 Albumin (test code = 653503) 4.4 g/dL 3.6-5.1 Total Protein (test code = 013887) 6.6 g/dL 6.1-8.1 Bilirubin, Total (test code = 632581) 0.4 mg/dL 0.2-1.2 Alkaline Phosphatase (test code = 044622) 80 U/L 33-130 Chloride (test code = 609940) 101 mmol/L 98-110 Glucose (test code = 885225) 315 mg/dL 65-99 Assessments Condition Name Status Diagnosis Date Treating Clinici an Full thickness rotator cuff tear Active 2020-09-14 12:0 1:25 Glenoid labrum tear Active 2020-09-15 09:55:59 Shoulder pain Active 2020-09-15 09:55:59 Spinal stenosis in cervical region Active 2020-09-15 09 :55:59 Full thickness rotator cuff tear Active 2020-09-13 15:2 5:16 Muscle weakness Active 2020-09-13 15:25:16 Abnormal posture Active 2020-09-13 15:25:16 Joint stiffness Active 2020-09-13 15:25:16 Full thickness rotator cuff tear Active 2020-09-06 13:3 8:03 Muscle weakness Active 2020-09-06 13:38:03 Abnormal posture Active 2020-09-06 13:38:03 Joint stiffness Active 2020-09-06 13:38:03 Full thickness rotator cuff tear Active 2020-08-31 07:0 2:21 Muscle weakness Active 2020-08-31 07:02:21 Abnormal posture Active 2020-08-31 07:02:21 Joint stiffness Active 2020-08-31 07:02:21 Full thickness rotator cuff tear Active 2020-08-23 12:5 4:42 Muscle weakness Active 2020-08-23 12:54:42 Abnormal posture Active 2020-08-23 12:54:42 Joint stiffness Active 2020-08-23 12:54:42 Full thickness rotator cuff tear Active 2020-08-18 07:0 1:50 Muscle weakness Active 2020-08-18 07:01:50 Abnormal posture Active 2020-08-18 07:01:50 Joint stiffness Active 2020-08-18 07:01:50 Full thickness rotator cuff tear Active 2020-08-12 12:3 2:37 Muscle weakness Active 2020-08-12 12:38:05 Abnormal posture Active 2020-08-12 12:38:29 Joint stiffness Active 2020-08-12 12:38:30 Full thickness rotator cuff tear Active 2020-08-04 10:1 1:34 Glenoid labrum tear Active 2020-08-04 10:11:34 Shoulder pain Active 2020-08-04 10:11:34 Spinal stenosis in cervical region Active 2020-08-04 10 :11:57 Full thickness rotator cuff tear Active 2020-08-03 10:1 0:37 Glenoid labrum tear Active 2020-08-03 10:14:36 Shoulder pain Active 2020-08-03 10:10:52 Cervical disc prolapse with Active 2020-08-03 10:16:47 radiculopathy Radiculopathy, cervical region Active Pain in left shoulder Active Type 2 diabetes mellitus with Active hyperglycemia 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 Type 2 diabetes mellitus with Active hyperglycemia retirement (current) use of insulin Active Type 2 diabetes mellitus with diabetic Active polyneuropathy Primary insomnia Active Type 2 diabetes mellitus with diabetic Active polyneuropathy retirement (current) use of insulin Active Primary insomnia Active Essential (primary) hypertension Active Bronchitis, not specified as acute or Active chronic Pleurisy Active Encntr screen mammogram for malignant Active neoplasm of breast Body mass index (BMI) 24.0-24.9, adult Active Type 2 diabetes mellitus with Active hyperglycemia Mixed hyperlipidemia Active Essential (primary) hypertension Active Primary insomnia Active Essential (primary) hypertension Active Body mass index (BMI) 25.0-25.9, adult Active Type 2 diabetes mellitus with diabetic Active polyneuropathy Patient's noncompliance w oth medical Active treatment and regimen Type 2 diabetes mellitus with diabetic Active polyneuropathy 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 Encounter for immunization Active Mixed hyperlipidemia Active Essential (primary) hypertension Active Type 2 diabetes mellitus with diabetic Active polyneuropathy Mixed hyperlipidemia Active Body mass index (BMI) 25.0-25.9, adult Active Type 2 diabetes mellitus with diabetic Active polyneuropathy Essential (primary) hypertension Active Mixed hyperlipidemia Active Primary insomnia Active Type 2 diabetes mellitus with diabetic Active polyneuropathy Essential (primary) hypertension Active Mixed hyperlipidemia Active Other amnesia Active Encounters Start End Encounter Admission Attending Care Care Encounter Date/Time Date/Time Type Type Clinicians Facility Department ID 2020-09-15 2020-09-15 Ricardo Franks Leelee Mckoy [id number] 00:00:00 00:00:00 MD Daniel: [facility] [id number] [address] [facility], [place] [address], Ph. 2020-09-14 2020-09-14 Anh Mckoy [id number] 00:00:00 00:00:00 Silas, [facility] [id number] DPT: [address] [place] [address], Ph. 2020-09-07 2020-09-07 Anh Mckoy [id number] 00:00:00 00:00:00 Silas, [facility] [id number] DPT: [address] [place] [address], Ph. 2020-08-31 2020-08-31 Anh Mckoy [id number] 00:00:00 00:00:00 Silas, [facility] [id number] DPT: [address], [place] [address], Ph. 2020-08-24 2020-08-24 Anh Ortizeret [id number] 00:00:00 00:00:00 Silas, [facility] [address]40 DPT: [address], [place] [address], Ph. 2020-08-18 2020-08-18 Anh Ortizeret [id number] 00:00:00 00:00:00 Silas, [facility] [id number] DPT: [address], [place] [address], Ph. 2020-08-12 2020-08-12 Anh Ortizeret [id number] 00:00:00 00:00:00 Silas, Surgical Surgical [id number] DPT: [address], [place] [address], Ph. 2020-08-04 2020-08-04 Ricardo Franks Leelee Ortizeret [id number] 00:00:00 00:00:00 MD Daniel: Surgical Surgical [id number] [address] [facility] [address], [place] [address], Ph. 2020-08-03 2020-08-03 Gio Leelee Ortizeret [id number] 00:00:00 00:00:00 DO Mikie: Surgical Surgical [id number] [address] [facility], [facility] [place] [address], Ph. 2020-06-21 2020-06-21 Outpatient Amy, [facility] 2 [id number] 13:00:00 13:00:00 Yahir Tate [id number] s [id number] and [id number] [facility], 2019-12-31 2019-12-31 [facility] [id number] 13:30:00 13:30:00 Yahir Children [id number] s [id number] and [id number] [facility], 2018-12-19 2018-12-19 [facility] [id number] 08:00:00 08:00:00 Yahir Children [id number] s [id number] and [id number] [facility] [place] 2018-11-20 2018-11-20 [facility] [id number] 13:15:00 13:15:00 Yahir Children [id number] s [id number] and [id number] [facility] [place] 2018-10-16 2018-10-16 [facility] [id number] 15:00:00 15:00:00 Yahir Children [id number] s [id number] and [id number] [facility] [place] 2017-12-23 2017-12-23 [facility] [facility] [id number] 08:45:00 08:45:00 [facility] [id number] s [id number] and [id number] [facility] [place] 2017-10-09 2017-10-09 [id number] 08:30:00 08:30:00 [facility] [id number] s [id number] and [id number] [facility] [place] 2017-10-02 2017-10-02 [facility] [id number] 09:15:00 09:15:00 [facility] [id number] s [id number] and [id number] [facility] [place] 2017-06-14 2017-06-14 [facility] 14 [id number] 08:00:00 08:00:00 [facility] [id number] s [id number] and [id number] [facility] [place] 2017-03-22 2017-03-22 [facility] [id number] 08:15:00 08:15:00 Yahir Tate [id number] s [id number] and [id number] [facility], TAMMY Social History Smoking Status Start Date Stop Date Never Smoker Vital Signs Vital Name Observation Time Observation Value Comments BP Diastolic 2020-09-15 00:00:00 76 mm[Hg] Height 2020-09-15 00:00:00 62 [in_i] BMI (Body Mass Index) 2020-09-15 00:00:00 24.9 kg/m2 BP Systolic 2020-09-15 00:00:00 112 mm[Hg] Body Weight 2020-09-15 00:00:00 136 [lb_av] Height 2020-08-04 00:00:00 62 [in_i] Height 2020-08-03 00:00:00 62 [in_i] BMI (Body Mass Index) 2020-08-03 00:00:00 23.8 kg/m2 Body Weight 2020-08-03 00:00:00 130 [lb_av] Hospital Discharge Instructions 1. Full thickness rotator cuff tear 2. Glenoid labrum tear 3. Shoulder pain shoulder pain: care instructions XR, shoulder 4. Cervical disc prolapse with radiculopathy Discussion Note: None recorded.
== END ==
LOC: OD 08:10
PROVIDERS: ATTEND Orthopaedic Surgery
DX: Z01.812 Encounter for preprocedural laboratory examination (principal); Z01.810 Encounter for preprocedural cardiovascular examination; S43.432A Superior glenoid labrum lesion of left shoulder, initial encounter; M75.122 Complete rotator cuff tear or rupture of left shoulder, not specified as traumatic; M25.512 Pain in left shoulder; I10 Essential (primary) hypertension; E11.9 Type 2 diabetes mellitus without complications; X58.XXXA Exposure to other specified factors, initial encounter
CPT/HCPCS: 36415; 80048; 83036; 85025; 93005; 93010